=== PATIENT | female | born 1990 | race Caucasian/White ===

== ENCOUNTER 2022-02-04 05:50 | Emergency (ER) | payer SELFPAY ==
[~2022-02-04] VITALS: Ht 167.6 cm; Wt 73.0 kg
[2022-02-04] MEDS ORDERED: KETOROLAC 30MG/ML VIAL IV STA (06:08)
[2022-02-04] MEDS ORDERED: TETANUS, DIPHTHERIA, PERTUSSIS VAC/PF 0.5ML (>10YR OLD) IM ONE (06:30)
[2022-02-04] MEDS ORDERED: BACITRACIN ZINC OINT UDPKT TOP ONE (06:30)
[2022-02-04] MEDS ORDERED: HYDR-4001 MT (09:09)
[2022-02-04] MEDS ORDERED: IBUP-2029 MT (09:09)
[2022-02-04 09:49] VITALS: BP 124/71
== END 2022-02-04 10:20 | disposition home or self-care (01) ==
LOC: ER 05:50
DX: T14.8XXA Other injury of unspecified body region, initial encounter (principal); S50.312A Abrasion of left elbow, initial encounter; R51.9 Headache, unspecified; V19.9XXA Pedal cyclist (driver) (passenger) injured in unspecified traffic accident, initial encounter; Y93.89 Activity, other specified; Y92.89 Other specified places as the place of occurrence of the external cause; Y99.8 Other external cause status
CPT/HCPCS: 70450; 72125; 72128; 72131; 73080; 90471; 90715; 96374; 99291; J1885

== ENCOUNTER 2022-02-28 08:06 | Emergency (ER) | payer MEDICAID ==
[~2022-02-28] VITALS: Ht 162.6 cm; Wt 70.0 kg
[~2022-02-28 08:06] MED LIST: HYDR-4001 MT; IBUP-2029 MT
[2022-02-28 08:25] VITALS: BP 102/53
[2022-02-28] MEDS ORDERED: KETOROLAC 60MG/2ML VIAL IM ONE (10:00)
== END 2022-02-28 11:04 | disposition home or self-care (01) ==
LOC: ER 08:06
DX: S22.079A Unspecified fracture of T9-T10 vertebra, initial encounter for closed fracture (principal); S27.9XXA Injury of unspecified intrathoracic organ, initial encounter; X58.XXXA Exposure to other specified factors, initial encounter; Y93.89 Activity, other specified; Y92.89 Other specified places as the place of occurrence of the external cause; Y99.8 Other external cause status
CPT/HCPCS: 96372; 99283; J1885